=== PATIENT | female | born 2000 | race Two or more races ===

== ENCOUNTER 2022-04-22 01:08 | Emergency (ER) | payer MEDICAID, OTHER ==
[~2022-04-22] VITALS: Ht 154.9 cm; Wt 68.6 kg
[2022-04-22 01:45] VITALS: BP 116/75
== END 2022-04-22 06:05 | disposition left against medical advice (07) ==
LOC: ER 01:08
DX: L60.0 Ingrowing nail (principal); Z53.21 Procedure and treatment not carried out due to patient leaving prior to being seen by health care provider